=== PATIENT | female | born 1965 | race Caucasian/White ===

== ENCOUNTER 2022-12-13 23:38 | Emergency (ER) | payer MEDICAID, OTHER ==
[~2022-12-13] VITALS: Ht 172.7 cm; Wt 109.0 kg
[2022-12-13 23:40] VITALS: BP 147/88
== END 2022-12-14 09:27 | disposition left against medical advice (07) ==
LOC: ER 23:38 → EDBD 23:38 → ER 12-14 09:27
DX: S76.011A Strain of muscle, fascia and tendon of right hip, initial encounter (principal); R51.9 Headache, unspecified; I10 Essential (primary) hypertension; V03.99XA Pedestrian with other conveyance injured in collision with car, pick-up truck or van, unspecified whether traffic or nontraffic accident, initial encounter; Y93.89 Activity, other specified; Y92.89 Other specified places as the place of occurrence of the external cause; Y99.8 Other external cause status
CPT/HCPCS: 70450; 71045; 71250; 72125; 73501; 74176